=== PATIENT | female | born 1995 | race Two or more races ===

== ENCOUNTER 2023-12-17 13:27 | Emergency (ER) | payer MEDICAID, SELFPAY ==
[2023-12-17 13:31] VITALS: BP 139/73; PULSE 81; TEMP 36.8; O2SAT 97
--- NOTE | 2023-12-17 13:55 | CT_ITS ---
[address] [address] Patient Name: YENI TRUONG MRN: [id number] date: 1995 Sex: F Assigned Patient Location: ER Current Patient Location: .MAIN Accession/Order Number: [id number] Exam Date: 12/17/2023 14:27 Report Date: 12/17/2023 15:47 At the request of: VINCENT NAM Procedure: CT abdomen pelvis wo con EXAM: CT abdomen pelvis wo con HISTORY: epigastric bulge COMPARISON: None. TECHNIQUE: Dose reduction techniques were achieved by using automated exposure control and/or adjustment of mA and/or kV according to patient size and/or use of iterative reconstruction technique. Noncontrast CT of the abdomen/pelvis. FINDINGS: Lung bases are clear. Heart size is normal. Liver, gallbladder, spleen, pancreas, kidneys, stomach, duodenum and adrenal glands are normal. Small hiatal hernia. Fat-containing anterior abdominal wall hernia of the upper abdomen, the anterior abdominal wall defect measures 0.7 cm. The hernia sac measures 2.1 x 1.7 cm. No colonic wall thickening or dilation. No small bowel dilation. No mesenteric edema. Appendix is normal. Large cyst of the posterior aspect of the pelvis measuring 6.3 x 6.1 cm, appears to originate from the right ovary. Ultrasound could evaluate the vascularity of the right ovary more accurately. Uterus is unremarkable by this technique. Nonspecific large left inguinal node measuring 1.1 cm. There are other prominent subcentimeter inguinal nodes. No bladder wall thickening. No acute osseous abnormality. CT/CT abdomen pelvis wo con IMPRESSION: 1. Fat-containing anterior abdominal wall hernia of the upper abdomen, the anterior abdominal wall defect measures 0.7 cm. The hernia sac measures 2.1 x 1.7 cm. 2. Large cyst of the posterior aspect of the pelvis measuring 6.3 x 6.1 cm, appears to originate from the right ovary. Ultrasound could evaluate the vascularity of the right ovary more accurately. 3. Small hiatal hernia. 4. Other findings as described. Electronically authenticated by: ALISON JON Date: 12/17/2023 15:47
[2023-12-17] MEDS: KETOROLAC TROMETHAMINE 30 MG/ML VIAL 15 MG IVP (14:11)
[2023-12-17 14:15] LABS: Basophils Percent Auto 0.6 % (0.2-2.0); Eosinophils Absolute Auto 0.2 10^3/uL (0.0-0.7); Eosinophils Percent Auto 2.5 % (0.9-7.0); Hematocrit 37.7 % (36.0-48.0); Hemoglobin 12.1 g/dL (12.0-16.0); Immature Granulocytes Abs Auto 0.02 10^3/uL (0.00-0.03); Immature Granulocytes Pct Auto 0.3 % (0.0-0.5); Lymphocytes Percent Auto 29.9 % (20.5-60.0); Mean Corpuscular HGB Conc 32.1 g/dL (29.9-35.2); Mean Corpuscular Hemoglobin 27.2 pg (26.7-34.0); Mean Corpuscular Volume 84.7 fL (81.0-99.0); Mean Platelet Volume 11.3 fL (9.5-13.5); Monocytes Absolute Auto 0.7 10^3/uL (0.3-0.8); Monocytes Percent Auto 9.8 % (1.7-12.0); Neutrophils Absolute Auto 3.9 10^3/uL (1.4-6.5); Neutrophils Percent Auto 56.9 % (43.0-75.0); Platelet Count 234 10^3/uL (150-450); Red Blood Count 4.45 10^6/uL (4.20-5.40); Red Cell Distribution Width 13.5 % (11.0-15.0); White Blood Count 6.8 10^3/uL (4.0-11.0)
[2023-12-17 14:17] LABS: HCG Qualitative NEGATIVE (NEGATIVE)
[2023-12-17 14:27] LABS: Alanine Aminotransferase 30 U/L (14-59); Albumin Level 3.5 g/dL (3.4-5.0); Alkaline Phosphatase 68 U/L (46-116); Anion Gap 13.5; Aspartate Amino Transferase 16 U/L (15-37); BUN Creatinine Ratio 13.3; Bilirubin Total 0.2 mg/dL (0.2-1.0); Calcium 8.5 mg/dL (8.5-10.1); Carbon Dioxide 25.6 mmol/L (21.0-32.0); Chloride 106 mmol/L (98-107); Estimated GFR (African America >60 (>=60); Estimated GFR (Non-African Ame >60 (>=60); Globulin 3.6 g/dL; Glucose 93 mg/dL (74-106); Potassium 4.1 mmol/L (3.5-5.1); Sodium 141 mmol/L (136-145); Total Protein 7.1 g/dL (6.4-8.2)
[2023-12-17 16:00] VITALS: BP 128/82; PULSE 72; O2SAT 99
--- NOTE | 2023-12-17 17:36 | ED_ITS ---
HPI - Abdominal Pain General Chief Complaint: Abdominal Pain Stated Complaint: STOMACH PAIN Time Seen by Provider: 12/17/23 13:36 Source: patient Mode of arrival: walk-in Limitations: no limitations History of Present Illness HPI narrative: The patient is coming to the ER with a bulge that she noticed few weeks ago in her epigastric area, she mentioned that she was also coughing because she have a history of smoking and she noted that the bulge was more and it is causing more pain The patient denies any fall or trauma but she mentioned that her work requires a lot of lifting No nausea no vomiting and no changes in bowel movement Related Data Previous Rx's ?Medication ?Instructions ?Recorded diclofenac sodium 75 mg 75 mg PO BID PRN pain #10 tabs 12/17/23 tablet,delayed release Allergies Allergy/AdvReac Type Severity Reaction Status Date / Time No Known Drug Allergies Allergy Verified 12/17/23 13:31 Review of Systems ROS Status of ROS 10 or more systems reviewed and unremark able except as noted in history and below Exam Narrative Exam Narrative: Nurses notes and vital signs reviewed and patient is not hypoxic. General: Well-appearing and in no apparent distress. Skin: Warm, dry, no pallor noted. No rash. Head: Normocephalic, atraumatic. Neck: Supple, non-tender. Eye: Pupils are equal, round and EOMI. No scleral icterus. Ears, Nose, Mouth, and Throat: TM are clear, no nasal mucosal hypertrophy. Oral mucosa is moist, no posterior oropharynx erythema, uvula is mid-line Cardiovascular: Regular Rate and Rhythm without murmur, gallop or rub. Respiratory: No accessory muscle use or respiratory distress. Lungs are clear to auscultation, no wheezing, rales or rhonchi Chest Wall: no tenderness Back: No midline thoracic or lumbar vertebral tenderness. No CVA tenderness Musculoskeletal: normal ROM, no calf or popliteal tenderness, no lower extremity edema/swelling GI: Abdomen is soft, there is no distention the patient have no tenderness in the abdomen except for the area in the epigastric area with the patient have a small bulge at the middle of the abdomen that almost 2 to 3 cm although it is deep in the patient of the muscle but it can be felt and is not movable and is causing some tenderness Neurological: A&O x4. No cranial nerve dysfunction observed. No truncal ataxia. Moves all extremities. Sensation intact. Psychiatric: Cooperative and interactive. Normal mood and affect. Constitutional Vital Signs, click to edit/add: Last Vital Signs Temp 98.2 F 12/17/23 13:31 Pulse 72 12/17/23 16:00 Resp 16 12/17/23 16:00 BP 128/82 12/17/23 16:00 Pulse Ox 99 12/17/23 16:00 Course Vital Signs Vital signs: Vital Signs Temperature 98.2 F 12/17/23 13:31 Pulse Rate 81 12/17/23 13:31 Respiratory Rate 16 12/17/23 13:31 Blood Pressure 139/73 12/17/23 13:31 Pulse Oximetry 97 12/17/23 13:31 Temperature 98.2 F 12/17/23 13:31 Pulse Rate 72 12/17/23 16:00 Respiratory Rate 16 12/17/23 16:00 Blood Pressure 128/82 12/17/23 16:00 Pulse Oximetry 99 12/17/23 16:00 MDM - Abdominal Pain MDM Narrative Medical decision making narrative: Patient CBC and chemistry showed no acute pathology CAT scan showing that the patient abdominal wall hernia that is only containing fat and her pain was better after being treated with Toradol Patient instructed that she need to avoid coughing or straining or carrying anything heavy and she was referred to general surgery as outpatient The patient to come back to the ER in case of any nausea vomiting or any increase in pain It was also noted that the patient have a large cyst in the right ovaries she mentioned that she have a history of similar cyst before but this was a few years ago with right now the patient was instructed about the importance of making sure that she did not have any pain in the right lower abdominal area and in case of any pain she is to come back to the ER because she is at risk of tors ion The patient also instructed that she needs an ultrasound to evaluate for possible tumor as well The patient is to follow up with primary care physician in next 2-3 days or to return to the emergency department should any of the signs or symptoms worsen or new symptoms develop. The patient agrees with the following Diagnosis and Treatment plan and the patient will be discharged home. Lab Data Labs: Lab Results 12/17/23 Range/Units 13:40 WBC 6.8 (4.0-11.0) 10^3/uL RBC 4.45 (4.20-5.40) 10^6/uL Hgb 12.1 (12.0-16.0) g/dL Hct 37.7 (36.0-48.0) % MCV 84.7 (81.0-99.0) fL MCH 27.2 (26.7-34.0) pg MCHC 32.1 (29.9-35.2) g/dL RDW 13.5 (11.0-15.0) % Plt Count 234 (150-450) 10^3/uL MPV 11.3 (9.5-13.5) fL Neut % (Auto) 56.9 (43.0-75.0) % Lymph % (Auto) 29.9 (20.5-60.0) % [place] % (Auto) 9.8 (1.7-12.0) % Eos % (Auto) 2.5 (0.9-7.0) % Baso % (Auto) 0.6 (0.2-2.0) % Neut # (Auto) 3.9 (1.4-6.5) 10^3/uL Lymph # (Auto) 2.0 (1.2-3.8) 10^3/uL [place] # (Auto) 0.7 (0.3-0.8) 10^3/uL Eos # (Auto) 0.2 (0.0-0.7) 10^3/uL Baso # (Auto) 0.0 (0.0-0.1) 10^3/uL Abs Immat Gran (auto) 0.02 (0.00-0.03) 10^3/uL Imm/Tot Granulo (auto) 0.3 (0.0-0.5) % Sodium 141 (136-145) mmol/L Potassium 4.1 (3.5-5.1) mmol/L Chloride 106 (98-107) mmol/L Carbon Dioxide 25.6 (21.0-32.0) mmol/L Anion Gap 13.5 BUN 10.0 (7.0-18.0) mg/dL Creatinine 0.75 (0.55-1.02) mg/dL Est GFR ( Amer) >60 (>=60) Est GFR (Non-Af Amer) >60 (>=60) BUN/Creatinine Ratio 13.3 Glucose 93 (74-106) mg/dL Calcium 8.5 (8.5-10.1) mg/dL Total Bilirubin 0.2 (0.2-1.0) mg/dL AST 16 (15-37) U/L ALT 30 (14-59) U/L Alkaline Phosphatase 68 (46-116) U/L Total Protein 7.1 (6.4-8.2) g/dL Albumin 3.5 (3.4-5.0) g/dL Globulin 3.6 g/dL Albumin/Globulin Ratio 1.0 Serum HCG, Qual Negative (NEGATIVE) Discharge Plan Discharge Stand Alone Forms: Portal Instructions Chief Complaint: Abdominal Pain Clinical Impression: Ovarian cyst, Abdominal wall hernia Patient Disposition: Home, Self-Care Time of Disposition Decision: 15:38 Condition: Good Prescriptions / Home Meds: New diclofenac sodium 75 mg tablet,delayed release (DR/EC) 75 mg PO BID PRN (Reason: pain ) Qty: 10 0RF Print Language: Chinese Instructions: Ovarian Cyst (ED), Ventral Hernia Repair (DC) Referrals: Kevin Levin MD [Physician] - 1 week Physician,Non-Staff, [Primary Care Provider] - 1 week Discharge Date/Time: 12/17/23 16:01
== END 2023-12-17 16:01 | disposition home or self-care (01) ==
PROVIDERS: Emergency Provider Emergency Medicine
DX: N83.201 Unspecified ovarian cyst, right side (principal); K43.9 Ventral hernia without obstruction or gangrene; Z87.891 Personal history of nicotine dependence
CPT/HCPCS: 36415; 74176; 80053; 84703; 85025; 96374; 99285

== ENCOUNTER 2025-05-14 10:57 | Emergency (ER) | payer BC, SELFPAY ==
--- OUTSIDE RECORDS SUMMARY | 2024-12-31 05:00 | XMS_ITS ---
Author Organization 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 Name Role Phone Perla Olsen Primary Care Provider Enrique Joyce [phone] REASON FOR VISIT EST CARE Encounters Encounter Location Date Provider Diagnosis [facility] [address] [place] [address] 12/31/2024 Perla Olsen Plan Of Treatment No Information Progress Notes * TRUONGKOREY JiangI PDOB: [birth year] (30 yo F)Acc No.[id number]:12/31/2024 Progress Notes Patient: YENI GOMEZ :?Perla Olsen NP-CDOB:1995???Age:29 Y ???Sex:FemaleDate:12/31/2024Phone:[phone]:[address] [place] [place], [id number] Subjective: * Chief Complaints: * E ST CARE * Electronic signature of Perla Olsen CNP on 05/14/2025 at 11:25 AM EDTSign off status: Pending * Provider: JOVANY Castellano Date: 0 12/31/2024 Generated for Printing/Faxing/eTransmitting on:?05/14/2025 11:25 AM EDT
--- OUTSIDE RECORDS SUMMARY | 2025-02-13 05:00 | XMS_ITS ---
Author Organization [facility] es Address [address] [place] [address] Care Team Providers Care Main Entree Cook And Cashier Name Role Phone Perla Olsen Primary Care Provider Enrique Joyce [phone] REASON FOR VISIT est care Encounters Encounter Location Date Provider Diagnosis [facility] [address] [place] [address] 02/13/2025 Perla Olsen Plan Of Treatment No Information Progress Notes * TRUONG YENI PDOB: [birth year] (30 yo F)Acc No.[id number]:02/13/2025 Progress Notes Patient: YENI GOMEZ :?Perla Olsen NP-CDOB:1995???Age:30 Y ???Sex:FemaleDate:02/13/2025Phone:[phone]:[address] [place], [id number] Subjective: * Chief Complaints: * E st care * Electronic signature of Perla Olsen CNP on 05/14/2025 at 11:25 AM EDTSign off status: Pending * Provider: JOVANY Castellano Date: 0 02/13/2025 Generated for Printing/Faxing/eTransmitting on:?05/14/2025 11:25 AM EDT
[2025-05-14 11:01] VITALS: BP 113/70; PULSE 83; TEMP 36.5; O2SAT 96; BMI 37.0
--- NOTE | 2025-05-14 11:09 | ECG_ITS ---
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 Measurements Intervals Whittaker Rate: 76 P: 60 CA: 164 QRS: 80 QRSD: 74 T: 30 QT: 356 QTc: 386 Interpretive Statements 1100 Sinus rhythm 9110 normal ECG No previous ECG available for comparison Electronically Signed On 05-14-2025 23:43:49 EDT by KEENAN BAUTISTA M.D.
--- NOTE | 2025-05-14 11:09 | XR_ITS ---
[facility] [place] [id number] Patient Name: YENI TRUONG MRN: [id number] date: 1995 Sex: F Assigned Patient Location: ED.MAIN Current Patient Location: ED.MAIN Accession/Order Number: [id number] Exam Date: 05/14/2025 11:10 Report Date: 05/14/2025 12:01 At the request of: MELY CABAN MD Procedure: XR chest 1V PORTABLE AP ERECT CHEST 1059 hours CLINICAL HISTORY: Wheezing COMPARISON: None The heart is within normal limits. There is no vascular congestion. The lungs, as visualized, are clear. There is no effusion or pneumothorax. The osseous structures are intact. XR/XR chest 1V IMPRESSION: NO ACUTE FINDINGS Impression dictated by: Alka Browne M.D. 05/14/2025 12:01 PM Dictation Location: [place] [address] Electronically authenticated by: [id number] Y Date: 05/14/2025 12:01
--- NOTE | 2025-05-14 11:09 | ED.GENADUL1 ---
HPI HPI - General Adult General Chief complaint: Shortness of Breath/Dyspnea Stated complaint: CHEST PAIN, SOB Time Seen by Provider: 05/14/25 11:06 Source: patient Mode of arrival: walk-in Limitations: no limitations History of Present Illness HPI narrative: 30-year-old female presents for wheezing and pain in her chest and shortness of breath. She believes her allergies are acting up. She has a wheezing sensation and she has never had that before. She has never used an inhaler. She has not had a productive cough or a fever. Symptoms began within the last day or 2. Related Data Previous Rx's ?Medication ?Instructions ?Recorded diclofenac sodium 75 mg 75 mg PO BID PRN pain #10 tabs 12/17/23 tablet,delayed release albuterol sulfate 90 mcg/actuation 2 inh inhalation Q4H PRN shortness 05/14/25 aerosol inhaler of breath or wheezing #8.5 grams prednisone 10 mg tablet See Rx Instructions .Route 05/14/25 .COMPLEX #30 tabs Allergies Allergy/AdvReac Type Severity Reaction Status Date / Time No Known Drug Allergies Allergy Verified 12/17/23 13:31 Opioid HPI Opioid Management Most Recent Opioid Data: Last Pain Scale 4 12/17/23, 14:11 Review of Systems ROS Narrative A ten point review of systems is negative except as noted above. PFSH PFSH Social History Little interest or pleasure in doing things: not at all Feeling down, depressed, or hopeless: not at all Exam Narrative Exam Narrative: Nurses note and vital signs reviewed General:The patient appears well and in no apparent distress.Patient is resting comfortably on cart. Skin:Warm, dry, no pallor noted.There is no rash noted. Head:Normocephalic, atraumatic Eye: Normal conjunctiva, no drainage Ears, Nose, Mouth, and Throat: oral mucosa is moist. Nares patent. Cardiovascular:Regular Rate and Rhythm Respiratory: Bilateral rhonchi throughout. Breath sounds equal Back:non-tender GI: Soft and nontender Musculoskeletal: The patient has no evidence of calf tenderness, no pitting edema, symmetrical pulses noted bilaterally Neurological:A&O, normal speech Psychiatric:Cooperative Constitutional Vital Signs, click to edit/add: Last Vital Signs Temp 97.7 F 05/14/25 11:01 Pulse 74 05/14/25 11:28 Resp 22 H 05/14/25 11:01 BP 113/70 05/14/25 11:01 Pulse Ox 97 05/14/25 11:28 O2 Del Method Room Air 05/14/25 11:28 Course Vital Signs Vital signs: Vital Signs Temperature 97.7 F 05/14/25 11:01 Pulse Rate 83 05/14/25 11:01 Respiratory Rate 22 H 05/14/25 11:01 Blood Pressure 113/70 05/14/25 11:01 Pulse Oximetry 96 05/14/25 11:01 Oxygen Delivery Method Room Air 05/14/25 11:01 Temperature 97.7 F 05/14/25 11:01 Pulse Rate 74 05/14/25 11:28 Respiratory Rate 22 H 05/14/25 11:01 Blood Pressure 113/70 05/14/25 11:01 Pulse Oximetry 97 05/14/25 11:28 Oxygen Delivery Method Room Air 05/14/25 11:28 Medical Decision Making MDM Narrative Medical decision making narrative: The patient feels much better after her aerosol treatment. She has very minimal wheezing now on repeat examination with excellent air movement. She is prescribed prednisone and albuterol. Treatment diagnosis and follow-up were discussed with the patient. Differential Diagnosis Differential Diagnosis: Asthma, pneumonia, reactive airway disease Imaging Data Chest x-ray: My impression: No acute findings ECG Data Attestation: I personally reviewed and interpreted this ECG as follows: (EKG on my interpretation shows sinus rhythm with rate of 76 and no acute change) Discharge Plan Discharge Chief Complaint: Shortness of Breath/Dyspnea Clinical Impression: Asthma exacerbation Patient Disposition: Home, Self-Care Time of Disposition Decision: 11:57 Condition: Good Mode of Transportation: Private Vehicle Prescriptions / Home Meds: New prednisone 10 mg tablet See Rx Instructions .ROUTE .COMPLEX Qty: 30 0RF Rx Instructions: 4 by mouth daily for three days then 3 by mouth daily for three days then 2 by mouth daily for three days then 1 by mouth daily for three days albuterol sulfate 90 mcg/actuation HFA aerosol inhaler 2 inh inhalation Q4H PRN (Reason: shortness of breath or wheezing) Qty: 8.5 0RF No Action diclofenac sodium 75 mg tablet,delayed release (DR/EC) 75 mg PO BID PRN (Reason: pain ) Qty: 10 0RF Print Language: Gambian Instructions: Asthma (ED), How to Use a Metered-Dose Inhaler (ED) Referrals: Physician,Non-Staff, MD [Primary Care Provider] - 1 week
--- OUTSIDE RECORDS SUMMARY | 2025-05-14 11:24 | XMS_ITS | CCD ---
Author Organization [facility] Care Team Providers Care Veterinary Meat Inspector Name Role Phone No, Physician Primary Care Provider Unavailabl e NO, PHYSICIAN Primary Care Unavailable LAURYN PONCE Attending Unavailabl e NONE, XXXX Primary Care Physician Unavailab Asha Wilson Primary Care Physician Harvey WYATT Primary Care Physician ROSE DRUMMOND Attending Unavailable Oswaldo Nj Referring Unavailable Oswaldo Nj Attending Unavailable Oswaldo Nj Admitting Unavailable No Pcp, No Pcp Primary Care Provider Unavailabl e Medications Current Medications MedicationDrug Class(es)DatesSig (Normalized)Sig (Original)cyclobenzaprine hydrochloride 10 mg oral tablet (1 source)Muscle RelaxantStart: 68-41-3920oqbd 1 tablet by mouth three times daily as needed for muscle spasmscyclobenzaprine (FLEXERIL) 10 mg tablet Take 1 tablet (10 mg total) by mouth 3 (three) times a day as needed for muscle spasms. 30 tablet 02/28/2022 Activeibuprofen 800 mg oral tablet (1 source)Nonsteroidal Anti-inflammatory DrugStart: 58-50-5239pghi 1 tablet by mouth every eight hours as needed for painibuprofen (MOTRIN) 800 mg tablet Take 1 tablet (800 mg total) by mouth every 8 (eight) hours as needed for pain. 30 tablet 02/28/2022 ActivemetroNIDAZOLE 500 mg oral tablet (1 source)Nitroimidazole AntimicrobialStart: 02-04-2019 End: 52-38-6755weah 1 tablet by mouth twice daily at mealtimemetroNIDAZOLE (FLAGYL) 500 MG tablet Take 1 (one) tablet (500 mg total) by mouth 2 (two) times a day with meals for 7 days . 14 tablet 0 02/04/2019 02/11/2019 Active Completed/Discontinued Medications MedicationDrug Class(es)DatesSig (Normalized)Sig (Original)acetaminophen 325 mg oral tablet (1 source)Start: 02-04-2019 End: 89-72-8293fpzthlojfafmn (TYLENOL) tablet 975 mg Problems Problem ClassificationProblemDateDocumented DateEpisodic/ChronicFever of unknown origin (1 source)Fever; Translations: [Fever, unspecified fever cause]Episodic Inflammatory diseases of female pelvic organs (1 source)Bacterial vaginosis; Translations: [Bacterial vaginosis]EpisodicMood disorders (1 source)Depressive disorder; Translations: [Depressive disorder]Onset: [id number] disorders of stomach and duodenum (5 sources)Stomach ciqltgj19-42-2656HalbwxyeQhxch upper respiratory infections (1 source)Acute pharyngitis; Translations: [Acute pharyngitis, unspecified] Onset: 58-18-5288FfmechxmHsyqxro and strains (1 source)Sprain of right ankle; Translations: [Sprain of unspecified ligament of right ankle, initial encounter]Onset: 42-71-1086UilpnpikLmqzuzxvs-related disorders (5 sources)Pefnuo81-52-0821AhewhslLleswpn on above:Added secondary to documentation in Social History.Added secondary to documentation in Social History. Results Test NameValueInterpretationReference RangeFacilityUS Pelvis Non-OB Completeon [id number] Pelvis Non-OB CompleteExam Date/Time: 03/12/2024 08:45 EDT Reason for Exam: N83.291 Report IMPRESSION: DUPLEX COLOR ULTRASOUND OF BOTH LEFT AND RIGHT OVARIES. SMALL AMOUNT OF FREE FLUID IN THE PELVIS. CLINICAL HISTORY: N83.291. COMPARISON: March 22, 2022 COMMENT: Transabdominal and endovaginal examination the pelvis The uterus measurements and an estimated volume are: Uterus Length: 7.4 cm Uterus Width: 4.2 cm Uterus Height: 3.1 cm Uterus Volume: 50.0 cm3 Endometrium Thickness: 0.8 cm no fluid is noted within the uterine canal. The endometrial echo complex is unremarkable. No abnormality of the echo pattern of the uterus is noted. No uterine mass is evident. The right ovary measurements and an estimated volume are: Right Ovary Length: 3.0 cm Right Ovary Width: 2.6 cm Right Ovary Height: 2.1 cm Right Ovary Volume: 8.2 cm3 Symptoms: Ultrasound of the right ovary is noted. Multiple cysts most likely physiological or functional are noted. The left ovary measurements and an estimated volume are: Left Ovary Length: 4.5 cm Left Ovary Width: 3.0 cm Left Ovary Height: 1.8 cm Left Ovary Volume: 12.2 cm3 The proximal color ultrasound of the left ovary is noted. Multiple cysts most likely physiological functional noted. There is a small amount of free fluid in the pelvis. Report Ordering Provider: Oswaldo Nj FINAL REPORT Dictated: 03/15/2024 10:54 am Fabian Good Signed (Electronic Signature): 03/15/2024 10:54 am Signed by: Fabian Good Transcribed by: STEFANY Technologist: [facility] Transvaginal Non-OBon [id number] Transvaginal Non-OBExam Date/Time: 03/12/2024 08:45 EDT Reason for Exam: N83.291 Report IMPRESSION: See transabdominal report EXAMINATION: Transabdominal endovaginal examination the pelvis CLINICAL HISTORY: Follow-up cystic mass seen on prior exam COMPARISONS: None FINDINGS: See the transabdominal report for additional details Ordering Provider: Oswaldo Nj FINAL REPORT Dictated: 03/15/2024 10:56 am Fabian Good Signed (Electronic Signature): 03/15/2024 10:56 am Signed by: Fabian Good Transcribed by: STEFANY Technologist: [facility] DublinPhysician Orderon [id number] Order [id number]#1.00TIFFKettering Health Washington TownshipMICRO OTHER TESTSOrdered By: Herman Mark on 02-09-2022. pyogenes Ag IA.rapid Ql (Throat)Negative (02/09/22 8:48 PM)NormalNegativeALLIANCEHE[facility] [place] SeroED Pat Hetal [id number] Pat [address] [address] Emergency Department Discharge Instructions SHERRIE TRUONG , Please provide this information to your Primary Care/Specialist Name : SHERRIE TRUONG Current Date : 03/06/2019 13:08:43 : 1995 Primary Care Physician : Physician, Shonda PCP Diagnosis: Follow-Up Instructions: SHERRIE TRUONG has been given these follow-up instructions: FOLLOW-UP APPOINTMENTS: Provider: Specialty: Address: Date: Provider: Specialty: Address: Date: Follow up with primary care provider Follow-up as needed Laboratory Orders: Name: Status: Urinalysis with Microscopic Automatic Completed Test Urine Completed Urinalysis Microscopic Completed Radiology Orders: None Ordered Diagnostic Tests: None Ordered Procedure(s) and Patient Education(s) : Free Text Instruction (CUSTOM) EMERGENCY SERVICES MEDICATION LIST Lista de Medicaciones de los Servicios de Emergencia Name SHERRIE TRUONG PLEASE READ THE FOLLOWING REGARDING YOUR MEDICATIONS Based on the information available during your visit we have given you the medication instructions below. Continue taking medications you took prior to your visit unless you have been told to change.Please share this information with your own doctor. Carry a list of your medications with you in case of an emergency. Update it when medications are stopped, doses are changed, or new medications (including mpys-hfj-tjosppr products) are added. If you have any questions, check with your doctor. Por la informaci??n disponible katie bailon visita, las instrucciones de medicaci??n aparecen debajo.Favor de continuar tomando las medicaciones Ud. peggy?? antes de bailon visita por lo menos que hay cambios. Favor de compartir esta informaci??n con bailon medico. Lleva rajendra lista de medicaciones consigo por tavo de emergenc??a. Actualiza la lista cuando Ud. jeri de alie las medicaciones, si cambian las dosis, o si hay nuevas medicaciones a??adidas (incluyendo medicaciones vendidas sin prescripci??n). Favor de preguntar a bailon medico por cualquier devin. THESE ARE THE MEDICATIONS YOU SHOULD BE TAKING No Medications Documented MEDICATIONS GIVEN DURING MEDICAL VISIT None NON-MEDICATION PRESCRIPTION SCHEDULING PHONE NUMBER: MEDICATION CHANGE DETAILS (Not your Final Home Medication List) During the course of your visit, your home medication list was updated with the most current information. The details of those changes are shown below: NEW MEDICATIONS None UPDATED MEDICATIONS None UNCHANGED MEDICATIONS None STOP TAKING THESE MEDICATIONS None DO NOT TAKE UNTIL YOU TALK TO YOUR DOCTOR None [facility] [address], [place] [address] Emergency Department Discharge Instructions Name: SHERRIE TRUONG Current Date: 03/06/2019 13:08:43 : 1995 Primary Physician: Physician, No PCP We would like to thank you for choosing [facility] for your emergency medical needs. We examined and treated you today on an emergency basis only. This was not a substitute for, or aneffort to provide, complete medical care. In most cases, you must let your doctor (or the doctor wereferred you to) check you again. Tell your doctor about any new or lasting problems. We cannot recognize and treat all injuries or illnesses in one emergency department visit. After you leave, you should follow the directions attached. Instructions for obtaining X-rays: When following up with your doctor or a bone doctor, you may need to take copies of your x-rays that were done in the Emergency Department. If you didn't receive these upon your discharge from the emergency department, please call . When the final report becomes available and it is reviewed, the emergency department will attempt to contact you if there are any changes in your instruc tions. It is important that you leave accurate information with us on how to contact you. IF you cannot be contacted, YOU must contact the follow-up doctor that you were assigned to make sure that the final official x-ray report does not require a change in your treatment. Instructions for obtaining medical records: If you need a copy of your medical records for follow-up, please contact the Health Information Management Department at . Their office hours are 8 AM- 4:30 PM, Monday through Monday. Please note: Results are not immediately available. Please allow a minimum of 48 hours for documentation and results. If you were prescribed an antibiotic: Antibiotics are life-saving drugs and they need to be used properly. Your team might change your antibiotic because test results show that a different antibiotic would be better to treat your infection. Like all medications, antibiotics have side effects. Some can be serious. This includes the riskof getting an antibiotic-resistant infection later, which may be difficult to treat. Remember to take your antibiotics as prescribed. If you have any questions please talk to your healthcare team. Seatbelts: There is no doubt that seatbelts save lives. Every day, people without seatbelts have more serious injuries. Have everyone buckle up, using age appropriate seatbelts or car seats, to reduce their risk of injury. Smoking: If you do smoke, we encourage you to stop. Smoking affects all aspects of your health and the health of those around you. [facility] offers many resources to help with smoking cessation. Call the [place] Tobacco Quit Line at 0-267-YHRWNOW ( ). High blood pressure: Your screening blood pressure today was 107 mm Hg / 74 mm Hg. Hypertension (high blood pressure) isblood pressure over 120/80. People with hypertension should contact their primary care provider within 30 days to follow up. Check your patient portal for additional blood pressure information. Immunizations: Immunization is a way to protect against deadly infections. Discuss this with your child's comfort station supervisor, or Public Health Department. Your family practice doctor can determine if you need pneumonia or flu vaccine. The [facility] Department can be reached at . Substance Abuse Program: Concerns with addiction to alcohol, benzodiazepines (Ativan or Xanax) and Opiates (Heroin, Percocet, OxyContin, Methadone or Fentanyl)? [facility] offers an inpatient Substance Abuse Program to help treat the symptoms associated with medical detoxification of addictive substances. The new program offers care for non- adults (18 and older) looking to break the chain to addictive chemicals. The Substance Abuse Program is a voluntary inpatient admission and it starts with apre-screening phone call to a sexual assault social worker. During the call, goals and objectives for recovery andhow the patient will transition to outpatient care will be established. Please call [phone] toget help today. Domestic Violence: If you are a victim of domestic violence (physical, verbal, or emotional), you are not alone. Discuss this with your physician or a friend and call the [place] Domestic Violence Hotline or [place] Domestic Violence Hotline for assistance and support. You are the most important factor in your recovery. Follow the provided instructions carefully. Take your medications as prescribed. Most importantly, see a doctor again as discussed. If you have problems that we have not discussed, call or visit yourdoctor right away. If you do not have a primary care physician, we have provided one for you to follow up with. When you call for an appointment, please inform them that you were seen in the emergency department and the date of your visit. If you are unable to reach your doctor and are still experiencing problems, return to the emergency department. For assistance finding a primary care physician, call the Physician Referral Line at [phone] ([phone]). Suicide Hotline: Your mental and emotional well-being is important. If you are in a mental health crisis or are having thoughts of suicide, please call the [facility] suicide hotline, anytime day or night, at 0-274-552-ZBRY (4288). Community Cutter And Edge Trimmer: You may be contacted by your local fire department for a follow up visit from a community painter decorator. The community painter decorator can help with a home safety check; follow up care, and general home care management. Pharmacy Information: Below is a list of 24 hour pharmacies that we are aware of. We suggest that you call the specific pharmacy for their hours before traveling to a location. Hours may vary on holidays. [facility] [place] [address], [place] [phone] [address] [place], [place] [address] [phone] [address] [place], [place] [address] [phone] [address], [place] [phone] [address], [place] [phone] [address], [place] [phone] [place] [phone] Take all medications as directed. If you need prescription assistance, contact the following agencies: ?? Partnership for Prescription Assistance at or www.pparx.org ?? [place] at or www.[place]estrx.org ?? www.XpliantRx.LeCab is a site with many valuable coupons Patient Education Materials SHERRIE TRUONG has been given the following patient education materials: Your urinalysis today is negative for , infection or dehydration. I feel that your symptoms are likely related to the antibiotic that you are taking. Please completed as directed by your physician. Return to the emergency room with persistent vomiting or fevers. <><><><><><><><><><><><><><><><><><><><><><><><><><> Patient Visit Summary Signature SHERRIE TRUONG has been given the following list of patient education materials, prescriptions and follow-up instructions: I, SHERRIE TRUONG, have received the above patient education materials/instructions and have verbalized understanding: Date Time Patient Signature Date Time Provider SignatureNormalSum[facility] Health [facility] CampusPregnancy Test Urineon 26-53-4418KIL ( test) Ql (U)NegativeNormalSumma Health [facility] Campus Comment on above:Performed By: #### 33771-9, 2106-3, 81965-9 #### [facility], [address], OHUrinalysis Microscopicon 07-87-8299Jzofmnhnms cells.squamous LM.HPF (Urine sed) [#/Area]RARENormalFEW/LPF [facility] SystemComment on above:Performed By: #### 21909-7, 2105-09, #### [facility], [address] [place] [address],OHMucus Ql (Urine sed)RARE AbnormalNONE/LPFMount Crittenton Behavioral Health SystemComment on above:Performed By: #### 41409-3, 2105-09, 93648-7 #### [facility], [address] [place] [address],OHRBC LM.HPF (Urine sed) [#/Area]1 /[HPF]Normal0-5[address] HospitalComment on above:Performed By: #### 34865-1, 2105-09, 16004-9 #### [facility], [address] [place] [address],OHWBC LM.HPF (Urine sed) [#/Area]1 /[HPF]Normal0-5[address] HospitalComment on above:Performed By: #### 08432-4, 2105-09, #### [facility], [address] [place] [address],OHUrinalysis with Microscopic Automaticon 93-18-6322Eourowmrji (U)CLEARNormalCLEARSumma Health [facility] Campus Comment on above:Performed By: #### 28934-2, 2105-09, #### [facility], [address] [place] [address],OHBilirubin Test strip (U) [Mass/Vol]NegativeNormalNEGATIVE-NEGATIVESumma Health [facility]ron CampusComment on above:Performed By: #### 55196-7, 2105-09, 71966-9 #### [facility], [address] [place] [address],OHColor (U)YELLOWNormalYELLOW [facility] CampusComment on above:Performed By: #### 78014-9, 2105-09, 25111-4 #### [facility], [address] [place] [address],OHGlucose Test strip (U) [Mass/Vol]NORMALNormalNORMALMount Crittenton Behavioral Health SystemComment on above:Performed By: #### 01592-2, 2105-09, #### [facility], [address] [place] [address],NVHemoglobin Ql (U)10/ULAbnormal NEGATIVE-NEGATIVELaunt Crittenton Behavioral Health SystemComment on above:Performed By: #### 32785-5, 2105-09, #### [facility], [address] [place] [address],NVKetones (U) [Mass/Vol]5MG/DL AbnormalNEGATIVE-NEGATIVELaunt Crittenton Behavioral Health SystemComment on above:Performed By: #### 03300-4, 2105-09, #### [facility], [address] [place] [address],NVLeukocyte esterase Test strip Ql (U)NegativeNormalNEGATIVE-NEGATIVEMount Crittenton Behavioral Health SystemComment on above: Performed By: #### 09593-4, 2105-09, #### [facility], [address] [place] [address],NVNitrite Test strip (U) [Mass/Vol]NegativeNormalNEGATIVE-NEGATIVELaunt Crittenton Behavioral Health SystemComment on above:Performed By: #### 12450-5, 2105-09, #### [facility], [address] [place] [address],OHpH (U)6.0 [pH]Normal4.5-8.0 [facility] SystemComment on above:Performed By: #### 01713-5, 2105-09, #### [facility]SH[facility]ABMAR[facility], [address] [place] [address],OHProtein (U) [Mass/Vol]Negative NormalNEGATIVE-NEGATIVEChillicothe Va Medical Center SystemComment on above:Performed By: #### 16940-3, 2105-09, 61196-2 #### [facility], [address] [place] [address],OHSpecific gravity (U) [Rel density]1.271Cyeyzm4.002-[address] HospitalComment on above: Performed By: #### 78515-6, 2105-3, 44265-7 #### [facility], [address] [facility],NVUrobilinogen Test strip (U) [Mass/Vol]NORMALNormalNORMALMount Wilson Street HospitalComment on above:Performed By: #### 11450-0, 2105-3, 23853-3 #### [facility], [address] [facility],NVPOC , Urineon 30-25-4095Ozab HCG ( test) Ql (U)Dilute urine specimens, as indicated by a low specific gravity (<1.010) may not contain insurance sales representative levels of hCG. If is still suspected, a serum test or repeat urine pregnan cy test using a first morning urine specimen should be considered.OhioHealthHCG ( test) Ql (U)NegativeNegativeOhioHealthInterpretation and review of laboratory resultsKettering Health Greene Memorial Urinalysis Dipstick, Autoon 02-04-2019 Bilirubin Ql (U)NegativeNegativeOhioHealthGlucose Ql (U)NegativeNegative mg/dL [facility]Bluffton HospitalHemoglobin Ql (U)NegativeNegativeOhioHealthInterpretation and review of laboratory resultsAbnormalOhioHealthKetones Ql (U)TraceAbnormalNegative mg/dL [facility]Bluffton HospitalLeukocyte esterase Test strip Ql (U)NegativeNegativeOhioHealthNitrite Ql (U)NegativeNegativeOhioHealthpH (U)5.5 [pH]OhioHealthProtein Ql (U)Negative Negative mg/dLOhioHealthSpecific gravity (U) [Rel density]1.025[facility] Urobilinogen Qn (U)0.2 mg/dL<2.0[facility] Vital Signs Date TimeVital SignValuePerforming DwurzehfiFdpndijg69-21-7905 15:53-0400Body iqkxtufaanh87.42 [degF][facility]08-17-2022 15:53-0400Diastolic blood mm[Hg][facility]08-17-2022 15:53-0400Heart rate96 /minFirelands Regional Medical Center South Campus08-17-2022 15:53-0400Respiratory rate16 /minFirelands Regional Medical Center South Campus08-17-2022 15:53-5093FoA1% (BldA) [Mass fraction]100 %[facility]08-17-2022 15:53-0400Systolic blood pressure 119 mm[Hg][facility]07-20-2022 20:40-0400Body rbbatlrjmiy91.24 [degF]Toddylinn Dokken [address] [place], [place] [address]7-20-2022 20:40-0400 Diastolic blood mm[Hg]Kaylinn Dokken [address] [place], [place] [address]7-20-2022 20:40-0400Heart rate75 /minToddylinn Dokken [address] [place], [place] 486[address]7-20-2022 20:40-0400 Respiratory rate16 /minToddylinn Dokken [address] [place], [place] 486[address]7-20-2022 20:40-2576LpE1% (BldA) [Mass fraction]98 %Toddylinn Dokken [address] [place], [place] [address]7-20-2022 20:40-0400 Systolic blood mm[Hg]Toddylinn Dokken [address] [place], [place] [address]7-15-2019 20:25-0400Body Iimcnrpnslj49.2 [degF]Lauryn ReyesXdsedyiJykwGicylu96-23-2168 19:12-0400BMI (Body Mass Index)30.27 kg/v0Xbvibsanna SinclairXqkthjdRdsfQncjxx38-24-7040 19:12-0400Body weight 70.31 kganna QcijserLamjKxqbst11-48-7262 19:120400BP Jsvnybepa37 mm[Hg]Lauryn PonceOodylcvOzkyEaigqo94-93-6913 19:12-0400BP Mlfogdtl824 mm[Hg]Lauryn Ponce GcswWotcrz45-75-9815 19:129478Hnppfy840.4 cmTenzo PonceWwofqnkBuerOpwogx23-01-7736 19:120400Pulse (Heart Rate)90 /minLauryn WillNlonrddLbfgNxjwhd73-08-4166 19:12-0400 Pulse Kplqcyef01 %Lauryn PonceJwivkdsPaoeSfzesx07-15-9733 19:12-0400Respiratory Rate 15 /minLauryn ReyesProMedica Defiance Regional Hospital Encounters Encounter DateEncounter TypeCare ProviderFacilityStart: 03-18-2024 End: 74-52-4987Sfkigkytj encounterMenjitendra Silva MD Work Phone: [facility] SurgeryStart: 03-12-2024 End: 39-80-8194qhgkqlmgchVkybc D KastenFacility:FTMCStart: 03-12-2024 End: 06-56-0687Bjdcseu encounter procedureOswaldo Nj [facility] Start: 08-11-2023 End: 91-98-0960ldiumzwknyKMJZFX M WORKMANNot AvailableStart: 03-09-2022 End: 71-00-2754Nskdylxrv department patient visitAstrit H DanielMagruder Hospital Start: 02-09-2022 End: 58-62-9235Dbpwqrxcb department patient visitToddylmirella Hwang [facility] Start: 01-28-2022 End: 67-39-3049Gyr-admission assessmentJamilan Nj [facility] Start: 01-20-2022 End: 45-25-2392Dwoljxh encounter procedureTermarie Isaac [facility] Start: 02-04-2019 End: 08-03-7627Pcjbgyqyy department patient visitPHYSICIESMER Northside Hospital Cherokeetart: 02-04-2019 End: 66-65-1855Qczopbnfj department patient visitTaanna Ponce Work Phone: OhFirstHealth Emergency DepartmentComment on above:Bacterial vaginosis (Primary Dx); Fever, unspecified fever cause Procedures DateProcedureProcedure DetailPerforming ClinicianStart: 06-05-5577Htnpc dip stick/tablet rgnt auto w/o microscopyTaanna Ponce Work Phone: Start: 33-23-5478Edkjiqxwqlhepevvjo ( test) [Presence] in UrineTaanna Ponce Work Phone: Plan of Treatment DateCare ActivityDetailAuthorStart: 26-05-7527UNbD,Tdap and Td Vaccines (3 - Td or Tdap)DTaP,Tdap and Td Vaccines (3 - Td or Tdap)[facility] SystemStart: 09-81-3515Fpcwfsvah vaccinationInfluenza VaccineOhioHealth [facility]heastern Medical Center SystemStart: 25-86-8328Iwnxc BMI ScreeningAdult BMI ScreeningOhioHealth Southeastern Medical Center SystemStart: 02-18-2019 End: 27-46-4610Nssjtt Visit02/18/2019 Office Visit Obstetrics and Gynecology Arlet Pike MD [address] [facility] [place] [address] [phone] [facility] [facility] Office Start: 05-19-9543Hsjmhaezy for malignant neoplasm of cervixPap SmearProOhio Valley Hospital SystemStart: 54-07-5592Gsbsgnpyev ScreeningDepression ScreeningOhioHealth Southeastern Medical Center SystemStart: 65-42-2185Jcsllba ScreeningTobacco ScreeningOhioHealth Southeastern Medical Center System End: 93-23-1377Tfdyqfmuw trachomatis rRNA assayChlamydia/GC/Trichomonas Amplified RNA Microbiology Routine Once for 1 Occurrences starting 02/04/2019 until 02/04/2019OhioHealthComment on above:Once for 1 Occurrences starting 02/04/2019 until 02/04/2019Chlamydia trachomatis rRNA assay Chlamydia/GC/Trichomonas Amplified RNA Microbiology Routine 02/04/2019 7:41 PM EDTOhiNDealth End: 26-36-2842Rqnhaewzm gonorrhoeae nucleic acid detectionChlamydia/Gonorrhoeae Amplified RNA Microbiology Routine Once for 1 Occurrences starting 02/04/2019 until 02/04/2019OhioHealthComment on above:Once for 1 Occurrences starting 02/04/2019 until 02/04/2019Neisseria gonorrhoeae nucleic acid detection Chlamydia/Gonorrhoeae Amplified RNA Microbiology Routine 02/04/2019 7:41 PM EDT [facility] End: 26-67-5029Sgcykhbktij vaginalis Amplified RNATrichomonas vaginalis Amplified RNA Microbiology Routine Once for 1 Occurrences starting 02/04/2019 until 02/04/2019OhioHealthComment on above:Once for 1 Occurrences starting 02/04/2019 until 02/04/2019Trichomonas vaginalis Amplified RNATrichomonas vaginalis Amplified RNA Microbiology Routine 02/04/2019 7:41 PM EDTOhiNDeal Immunizations Immunization DateImmunizationNotesCare WpnkkqpmBjnbarej88-19-1891wlidice toxoid, reduced diphtheria toxoid, and acellular pertussis vaccine, adsorbedJames Silva MD Work Phone: [facility] Payers DatePayer CategoryPayerPolicy [id number] 2023Medicaid CARESOURCE MEDICAID [facility] [id number] 2022-Present [phone] [address] [place] [address] [id number] INSURANCE AUTO [id number] ONLY LIABILIT [id number] 2022-Present [phone] [facility] [address] [place] [address] [id number]'s CompensationWORKER'S COMPENSATION WORKER'S [id number] ONLY [id number] 2022-Present [id number] [facility] [address] [place] [address] [id number] Health InsuranceAETNA AETNA CHOICE POS/POSII/PREMIER CARE/PREMIER CARE PLUS xxxxxxxxxx 2016-Presentxxxxxxxxxx [id number]. Private Health [id number] Social History DateTypeDetailFacilityStart: 02-04-2019 End: 86-67-4049Xewegoh smoking status NHISCurrent every day smokerOhioHealth Comment on above:2 per dayHistory of tobacco useCigar SmokerOhioHealthStart: 36-99-0990Dxszhth SDOH Alcohol Oscibjljc1IhygQipkgpLikbz: 14-50-3402Quo Assigned At BirthNot on fileOhioHealthStart: 09-03-2020 End: 96-17-3117Ens Assigned At BirthFemaleFPeoples Hospital CenterStart: 04-59-7853Xo-smoker (finding)[facility] CenterStart: 05-13-2018 Tobacco smoking status NHISOccasional tobacco smokerProOhio Valley Hospital System History of tobacco useCigarette SmokerOhioHealth Southeastern Medical Center SystemStart: 05-13-2018 Tobacco use and exposureSmokeless tobacco non-userProOhio Valley Hospital SystemStart: 03-04-2999Ipsndxcik beverage intakeCurrent non-drinker of alcohol (finding) [facility] Hospitaltart: 09-03-2020 End: 42-10-1896Rcnnxsu of Social functionMetroHealth Main Campus Medical CenterChildcareUnknown [facility] Functional Status QkdeHwtxbvehbsInhkxiEkbgnjyx95-38-2932G/[facility]07-20-2022 Functional StatusN/[facility] Note 03-18-2024 Note Date & PziwNmleNzpdzdsf42-41-1710 Miscellaneous Notes* Telephone Encounter - Lashon Jacobo - 03/18/2024 11:33 AM EDT Called Sherrie as she no called no showed for her appointment with Dr Silva for today, I left a message on voicemail to call the office back to reschedule her appointment. documented in this encounterMetroHealth Main Campus Medical Center Telephone encounter Note 03-18-2024 Note Date & UlvwScjmHwycuilm50-12-6252 Telephone encounter Note* Telephone Encounter - Lashon Jacobo - 03/18/2024 11:33 AM EDT Called Sherrie as she no called no showed for her appointment with Dr Ricardo burdick today, I left a message on voicemail to call the office back to reschedule her appointment. [facility] Hospital Discharge instructions 03-09-2022 Note Date & HuxyZzwgKgfjkgfu07-11-0298 Hospital Discharge instructions Patient Education 03/09/2022 16:06:03 Ankle Sprain, Yssv-qt-Xtwk Ankle Sprain An ankle sprain is a stretch or tear in one of the tough tissues (ligaments) that connect the bonesin your ankle. An ankle sprain can happen when the ankle rolls outward (inversion sprain) or inward(eversion sprain). What are the causes? This condition is caused by rolling or twisting the ankle. What increases the risk? You are more likely to develop this condition if you play sports. What are the signs or symptoms? Symptoms of this condition include: Pain in your ankle. Swelling. Bruising. This may happen right after you sprain your ankle or 1 2 days later. Trouble standing or walking. How is this diagnosed? This condition is diagnosed with: A physical exam. During the exam, your doctor will press on certain parts of your foot and ankle and try to move them in certain ways. X-ray imaging. These may be taken to see how bad the sprain is and to check for broken bones. How is this treated? This condition may be treated with: A brace or splint. This is used to keep the ankle from moving until it heals. An elastic bandage. This is used to support the ankle. Crutches. Pain medicine. Surgery. This may be needed if the sprain is very bad. Physical therapy. This may help to improve movement in the ankle. Follow these instructions at home: If you have a brace or a splint: Wear the brace or splint as told by your doctor. Remove it only as told by your doctor. Loosen the brace or splint if your toes: ?Tingle. ?Lose feeling (become numb). ?Turn cold and blue. Keep the brace or splint clean. If the brace or splint is not waterproof: ?Do not let it get wet. ?Cover it with a watertight covering when you take a bath or a shower. If you have an elastic bandage (dressing): Remove it to shower or bathe. Try not to move your ankle much, but wiggle your toes from time to time. This helps to prevent swelling. Adjust the dressing if it feels too tight. Loosen the dressing if your foot: ?Loses feeling. ?Tingles. ?Becomes cold and blue. Managing pain, stiffness, and swelling Take ldoi-gmv-nnlrfjc and prescription medicines only as told by doctor. For 2 3 days, keep your ankle raised (elevated) above the level of your heart. If told, put ice on the injured area: ?If you have a removable brace or splint, remove it as told by your doctor. ?Put ice in a plastic bag. ?Place a towel between your skin and the bag. ?Leave the ice on for 20 minutes, 2 3 times a day. General instructions Rest your ankle. Do not use your injured leg to support your body weight until your doctor says that you can. Use crutches as told by your doctor. Do not use any products that contain nicotine or tobacco, such as cigarettes, e- cigarettes, and chewing tobacco. If you need help quitting, ask your doctor. Keep all follow-up visits as told by your doctor. Contact a doctor if: Your bruises or swelling are quickly getting worse. Your pain does not get better after you take medicine. Get help right away if: You cannot feel your toes or foot. Your foot or toes look blue. You have very bad pain that gets worse. Summary An ankle sprain is a stretch or tear in one of the tough tissues (ligaments) that connect the bonesin your ankle. This condition is caused by rolling or twisting the ankle. Symptoms include pain, swelling, bruising, and trouble walking. To help with pain and swelling, put ice on the injured ankle, raise your ankle above the level of your heart, and use an elastic bandage. Also, rest as told by your doctor. Keep all follow-up visits as told by your doctor. This is important. This information is not intended to replace advice given to you by your health care provider. Make sure you discuss any questions you have with your health care provider. Document Released: 12/26/2008 Document Revised: 12/04/2018 Document Reviewed: 12/04/2018 [employer] Patient Education 2020 [employer]. Follow Up Care 03/09/2022 15:50:21 With:RUPALI JIMENEZ, LEOPOLDO Vieira Address: [address] [place] [address]- When:03/12/2022 [facility] Evaluation + Plan note 03-09-2022 Note Date & CbsaNwntHzncftea80-15-1369 Evaluation + Plan noteExtracted from: Title:ED NoteAuthor:Yasmine Rebolledo PA-CDate:03/09/22 1. Right ankle sprain (S93.4 01A: Sprain of unspecified ligament of right ankle, initial encounter) Orders: ketorolac, 30 mg = 1 mL, Injection, IntraMuscular, Once, Stop date 03/09/22 16:07:00 EDT, STAT, Start date 03/09/22 16:07:00 EDT, 03/09/22 16:07:00 EDT Deshaun Wrap Air Cast Short Crutches Future Appointments Appointment Date:04/25/2022 09:00:00 AM Scheduled Provider: Location:FT.[facility] Appointment Type:US Abdominal/Pelvis (FT) Future Scheduled Tests Radiology* US Pelvis Non-OB Complete 04/25/22 * US Transvaginal Non-OB 04/25/22 [facility] Hospital Discharge instructions 02-09-2022 Note Date & AzbvMcwqEdevbhoo80-36-2624 Hospital Discharge instructions Patient Education 02/09/2022 21:25:52 Pharyngitis Pharyngitis Pharyngitis is redness, pain, and swelling (inflammation) of the throat (pharynx). It is a very common cause of sore throat. Pharyngitis can be caused by a bacteria, but it is usually caused by a virus. Most cases of pharyngitis get better on their own without treatment. What are the causes? This condition may be caused by: Infection by viruses (viral). Viral pharyngitis spreads from person to person (is contagious) through coughing, sneezing, and sharing of personal items or utensils such as cups, forks, spoons, and toothbrushes. Infection by bacteria (bacterial). Bacterial pharyngitis may be spread by touching the nose or faceafter coming in contact with the bacteria, or through more intimate contact, such as kissing. Allergies. Allergies can cause buildup of mucus in the throat (post-nasal drip), leading to inflammation and irritation. Allergies can also cause blocked nasal passages, forcing breathing through themouth, which dries and irritates the throat. What increases the risk? You are more likely to develop this condition if: You are 5 24 years old. You are exposed to crowded environments such as daycare, school, or dormitory living. You live in a cold climate. You have a weakened disease-fighting (immune) system. What are the signs or symptoms? Symptoms of this condition vary by the cause (viral, bacterial, or allergies) and can include: Sore throat. Fatigue. Low-grade fever. Headache. Joint pain and muscle aches. Skin rashes. Swollen glands in the throat (lymph nodes). Plaque-like film on the throat or tonsils. This is often a symptom of bacterial pharyngitis. Vomiting. Stuffy nose (nasal congestion). Cough. Red, itchy eyes (conjunctivitis). Loss of appetite. How is this diagnosed? This condition is often diagnosed based on your medical history and a physical exam. Your health care provider will ask you questions about your illness and your symptoms. A swab of your throat may be done to check for bacteria (rapid strep test). Other lab tests may also be done, depending on the suspected cause, but these are rare. How is this treated? This condition usually gets better in 3 4 days without medicine. Bacterial pharyngitis may be treated with antibiotic medicines. Follow these instructions at home: Take bths-nur-xtamtfx and prescription medicines only as told by your health care provider. ?If you were prescribed an antibiotic medicine, take it as told by your health care provider. Do not stop taking the antibiotic even if you start to feel better. ?Do not give children aspirin because of the association with Claude syndrome. Drink enough water and fluids to keep your urine clear or pale yellow. Get a lot of rest. Gargle with a salt-water mixture 3 4 times a day or as needed. To make a salt- water mixture, completely dissolve -1 tsp of salt in 1 cup of warm water. If your health care provider approves, you may use throat lozenges or sprays to soothe your throat. Contact a health care provider if: You have large, tender lumps in your neck. You have a rash. You cough up green, yellow-brown, or bloody spit. Get help right away if: Your neck becomes stiff. You drool or are unable to swallow liquids. You cannot drink or take medicines without vomiting. You have severe pain that does not go away, even after you take medicine. You have trouble breathing, and it is not caused by a stuffy nose. You have new pain and swelling in your joints such as the knees, ankles, wrists, or elbows. Summary Pharyngitis is redness, pain, and swelling (inflammation) of the throat (pharynx). While pharyngitis can be caused by a bacteria, the most common causes are viral. Most cases of pharyngitis get better on their own without treatment. Bacterial pharyngitis is treated with antibiotic medicines. This information is not intended to replace advice given to you by your health care provider. Make sure you discuss any questions you have with your health care provider. Document Released: 07/10/2006 Document Revised: 06/22/2018 Document Reviewed: 08/15/2017 [employer] Patient Education 2020 [employer]. 02/09/2022 21:05:26 Sore Throat, Kngs-nj-Hyms Sore Throat When you have a sore throat, your throat may feel: Tender. Burning. Irritated. Scratchy. Painful when you swallow. Painful when you talk. Many things can cause a sore throat, such as: An infection. Allergies. Dry air. Smoke or pollution. Radiation treatment. Gastroesophageal reflux disease (GERD). A tumor. A sore throat can be the first sign of another sickness. It can happen with other problems, like: Coughing. Sneezing. Fever. Swelling in the neck. Most sore throats go away without treatment. Follow these instructions at home: Take twom-khp-ocxleoc medicines only as told by your doctor. ?If your child has a sore throat, do not give your child aspirin. Drink enough fluids to keep your pee (urine) pale yellow. Rest when you feel you need to. To help with pain: ?Sip warm liquids, such as broth, herbal tea, or warm water. ?Eat or drink cold or frozen liquids, such as frozen ice pops. ?Gargle with a salt-water mixture 3 4 times a day or as needed. To make a salt- water mixture, add 1tsp (3 6 g) of salt to 1 cup (237 mL) of warm water. Mix it until you cannot see the salt anymore. ?Suck on hard candy or throat lozenges. ?Put a cool-mist humidifier in your bedroom at night. ?Sit in the bathroom with the door closed for 5 10 minutes while you run hot water in the shower. Do not use any products that contain nicotine or tobacco, such as cigarettes, e- cigarettes, and chewing tobacco. If you need help quitting, ask your doctor. Wash your hands well and often with soap and water. If soap and water are not available, use hand ornamental metal erector. Contact a doctor if: You have a fever for more than 2 3 days. You keep having symptoms for more than 2 3 days. Your throat does not get better in 7 days. You have a fever and your symptoms suddenly get worse. Your child who is 3 months to 3 years old has a temperature of 102.2 F (39 C) or higher. Get help right away if: You have trouble breathing. You cannot swallow fluids, soft foods, or your saliva. You have swelling in your throat or neck that gets worse. You keep feeling sick to your stomach (nauseous). You keep throwing up (vomiting). Summary A sore throat is pain, burning, irritation, or scratchiness in the throat. Many things can cause a sore throat. Take sjkm-wcl-jbktuny medicines only as told by your doctor. Do not give your child aspirin. Drink plenty of fluids, and rest as needed. Contact a doctor if your symptoms get worse or your sore throat does not get better within 7 days. This information is not intended to replace advice given to you by your health care provider. Make sure you discuss any questions you have with your health care provider. Document Released: 04/18/2009 Document Revised: 12/10/2018 Document Reviewed: 12/10/2018 [employer] Patient Education 2020 [employer]. Follow Up Care 02/09/2022 20:38:13 With:RUPALI JIMENEZ, LEOPOLDO Vieira Address: [address] [place] [address]- When:02/12/2022 [facility] Evaluation + Plan note 02-09-2022 Note Date & MhfsJyvfXzqsrras43-58-6938 Evaluation + Plan noteExtracted from: Title:ED NoteAuthor:Yasmine Rebolledo PA-CDate:02/09/22 1. Viral pharyngitis (J02.9: Acute pharyngitis, unspecified) Future Appointments Appointment Date:04/25/2022 09:00:00 AM Scheduled Provider: Location:.[facility] Appointment Type:US Abdominal/Pelvis (FT) Diagnostic Tests Pending * Group A Strep by PCR 02/09/22 Future Scheduled Tests Radiology* US Pelvis Non-OB Complete 04/25/22 * US Transvaginal Non-OB 04/25/22 [facility] Evaluation + Plan note Note Date & TypeNoteFacilityEvaluation + Plan note No data available for this section [facility] Hospital Discharge instructions Note Date & TypeNoteFacilityHospital Discharge instructions No data available for this section [facility] Instructions Note Date & TypeNoteFacilityInstructionsNot on filedocumented in this encounter [facility] CenterMedAware Systems Get Me Listed System Progress note Note Date & TypeNoteFacilityProgress note No data available for this section [facility] Discharge Instructions * Attachments The following attachments cannot be sent through Care Everywhere. * Bacterial Vaginosis (Hungarian) * Fever: General Info (Hungarian) documented in this encounter Assessments Diagnosis Bacterial vaginosis- Primary Unspecified vaginitis and vulvovaginitis Fever, unspecified fever cause Advance Directives TypeDate RecordedPatient RepresentativeExplanationAdvance Directives and Living Will02/04/2019 7:48 PMDate ActivatedDate RmglroielkrIxsnakzm48/23/2016 11:56 AM 07/19/2016 1:16 PM Summary Purpose Family History No Family History Records FoundNo Family History Records FoundNo Family History Records Found No data available for this section No Family History Records Found Hospital Course Note EMERGENCY DEPARTMENT DISCHAR GE SUMMARY PATIENT NAME:SHERRIE TRUONG MRN: ([id number] AGE: 24 Years SEX: Female PHONE:[phone] DOS: 03/06/2019 10:50:00 : 1995 ATTENDING PHYSICIAN:Macey Gonzales PCP: Physician, Shonda PCP CHIEF COMPLAINT: Vomiting in am Allergies No Known Medication Allergies Problems Active Colitis DISCHARGE DIAGNOSIS: DISCHARGE INSTRUCTIONS: Free Text Instruction (CUSTOM) ED PHYSICIAN DOCUMENTATION: DISPOSITION: Time of Departure From ER 03/06/2019 13:08 Discharge/Transfer From ER Home 01 MEDICATION LISTS: CURRENT MEDICATION LIST No Medications Documented MEDICATIONS GIVEN DURING MEDICAL VISIT None LAB RESULTS: LABORATORY TESTS: Abnormal Lab Result(s): Date Order Results 03/06/2019 11:36 Blood Urine A 10/UL 03/06/2019 11:36 Ketones Urine A 5MG/DL 03/06/2019 11:36 Mucous Urine A RARE RADIOLOGY: FOLLOW UP: FOLLOW-UP APPOINTMENTS: Provider: Specialty: Address: Date: Provider: Specialt (more content not included)... Additional Source Comments Reason for Visit (unrecogniz ed section and content) ReasonCommentsvaginal odor Leonela Garcia RN - 02/04/2019 8:25 PM EDT ED Notes (unrecognized secti on and content) Pt given discharge paperwork, verbalizes understanding of instructions. * Lauryn Ponce MD - 02/04/2019 7:43 PM EDT ED PROVIDER NOTE [facility] EMERGENCY DEPARTMENT NAME: Sherrie Truong AGE: 24 y.o. : 1995 VISIT DATE: 02/04/2019 CSN: [id number] PCP: Physician No Chief Complaint Patient presents with vaginal odor HPI this is a 24-year-old female with no significant past medical history who presents with vaginalodor. The patient reports that she knows the odor of states her menstrual cycle is also shorter than normal. It started on or Monday and ended abruptly yesterday. She states her menstrual cycle usually lasts about a week. She denies any fever. She denies any nausea, vomiting. She denies any abdominal pain. She denies any dysuria. She has any chest pain, cough, shortness of breath. She denies any headache, sore throat or any upper respiratory symptoms. She states she did not even know she had fever until her temperature was checked today she does not feel like she has a fever. She states that she has felt completely normal and actually try to follow-up with her [employer] for the vaginal odor but unfortunately cannot get an appointment until later in the month and is bothering her andher boyfriend and so she want to get it checked out sooner. She states she is only sure what the odor smells like but it is a bit fishy. She denies any vaginal discharge. She does not use any tamponswith her menstrual cycle denies putting any foreign bodies in the vagina. She does admit to some loose stools last 48 hours that has since resolved today. No other issues or complaints at this time. She denies any wounds or skin rashes. She is having unprotected intercourse but denies any concern for an STD at this time as she states her and her partner monogamous. She is concerned of possible , however. No past medical history on file. No past surgical history on file. No family history on file. Social History Socioeconomic History Marital status: Single Spouse name: Not on file Number of children: Not on file Years of education: Not on file Highest education level: Not on file Occupational History Not on file Social Needs Financial resource strain: Not on file Food insecurity: Worry: Not on file Inability: Not on file Transportation needs: Medical: Not on file Non-medical: Not on file Tobacco Use Smoking status: Current Every Day Smoker Types: Cigars Smokeless tobacco: Never Used Substance and Sexual Activity Alcohol use: Never Frequency: Never Drug use: Never Sexual activity: Not on file Lifestyle Physical activity: Days per week: Not on file Minutes per session: Not on file Stress: Not on file Relationships Social connections: Talks on phone: Not on file Gets together: Not on file Attends moravian service: Not on file Active member of club or organization: Not on file Attends meetings of clubs or organizations: Not on file Relationship status: Not on file Other Topics Concern Not on file Social History Narrative Not on file No current outpatient medications on file prior to encounter. No Known Allergies Review of Systems Constitutional: Negative for chills and fever. Respiratory: Negative for cough and shortness of breath. Cardiovascular: Negative for chest pain. Gastrointestinal: Negative for abdominal pain, blood in stool, diarrhea and nausea. Genitourinary: Negative for decreased urine volume, difficulty urinating, dyspareunia, dysuria, flank pain, frequency, hematuria, pelvic pain, urgency, vaginal bleeding and vaginal discharge. Vaginal odor. Skin: Negative for rash and wound. Neurological: Negative for dizziness, light-headedness and headaches. All other systems reviewed and are negative. Patient Vitals for the past 24 hrs: BP Temp Temp src Pulse Resp SpO2 Height Weight 02/04/192014 98.5 F (36.9 C) 02/04/19 1912 109/65 (!) 101.1 F (38.4 C) Oral 90 15 99 % 5' 70.3 kg (155 lb) Physical Exam Constitutional: She is oriented to person, place, and time. She appears well- developed and well-nourished. HENT: Head: Normocephalic and atraumatic. Right Ear: External ear normal. Left Ear: External ear normal. Mouth/Throat: Oropharynx is clear and moist. Eyes: Pupils are equal, round, and reactive to light. Neck: Neck supple. Full range of motion of neck without meningismus. Cardiovascular: Normal rate, regular rhythm and intact distal pulses. No murmur heard. Pulmonary/Chest: Effort normal and breath sounds normal. She has no wheezes. She exhibits no tenderness. Abdominal: Soft. Bowel sounds are normal. There is no tenderness. Genitourinary: Genitourinary Comments: No CMT or adnexal tenderness. No significant vaginal discharge. Cervix is normal. No vaginal foreign bodies. Musculoskeletal: Normal range of motion. She exhibits no edema. Neurological: She is alert and oriented to person, place, and time. No cranial nerve deficit. Skin: No rash noted. Psychiatric: She has a normal mood and affect. Laboratory & Radiographic Imaging (if done): Results for orders placed or performed during the hospital encounter of 02/04/19 POC , Urine Result Value Ref Range POC Preg Test, Ur Negative Negative POC Urinalysis Dipstick, Auto Result Value Ref Range Spec Grav, UA 1.025 1.005 - 1.025 pH, UA 5.5 5.0 - 7.0 Protein, UA Negative Negative mg/dL Glucose, UA Negative Negative mg/dL Ketones, UA Trace (A) Negative mg/dL Bilirubin, UA Negative Negative Urobilinogen, UA 0.2 <2.0 mg/dL Blood, UA Negative Negative Nitrite, UA Negative Negative Leukocyte Esterase, UA Negative Negative No orders to display Procedures MDM This is a well-appearing nontoxic 24-year-old female who presents with vaginal odor and was found to have a fever here. I have no objective findings on my exam for source of this fever at this time. She is extremely well-appearing here. She states she had no idea she had a fever, more so just the fact that she want to have intercourse with her partner but cannot because the odor is bothersome to her and her partner. At this point I do not have a wet prep here but given the mild fishy odor on exam we will go ahead and treat for possible BV. No evidence of yeast infection at this time she does complain of any itching or pain in the vaginal area and there is no significant discharge as explained earlier. No skin lesions or rashes. We will check her urine to make sure she is not or has UTI. Disposition pending work-up. Also trial dose of Tylenol can help with the temperature. . ED update: After dose of Tylenol the patient's temperature is 98.5. Her urine is clean and she isnot . Unsure if this elevated temperature was misread on the thermometer or secondary to a viral syndrome that is resolving as she did admit to some looser stools last couple of days but she is feeling fine. She is requesting discharge at this time which I think is reasonable. She is counseled on strict return precautions and close follow-up at this point we will go ahead and trial Flagylas again was on the wet prep here but with that fishy odor I am concerned for bacterial vaginosis. She has an appoint with her [employer] upcoming as well and will keep that appointment. Return precautions given especially just start to feel ill from the elevated temperature but this point stable for discharge with outpatient follow-up. Again, she has no abdominal tenderness or adnexal tenderness my exam and I doubt TOA or other pelvic cause for the fever at this time especially with a well-appearing and nontoxic she is. . Clinical Impression: SNOMED CT(R) 1. Bacterial vaginosis BACTERIAL VAGINOSIS 2. Fever, unspecified fever cause FEVER ED Disposition ED Disposition Condition Comment Discharge Stable Sherrie Truong discharged to home/self care in stable condition. Follow-up Information 1. [facility] Department. Specialty: Emergency Medicine Why: If symptoms worsen [address] [facility] [address] Contact information for after-discharge care Follow-up information has not been specified. New Prescriptions metroNIDAZOLE (FLAGYL) 500 MG tablet Take 1 (one) tablet (500 mg total) by mouth 2 (two) times a day with meals for 7 days . Lauryn Ponce MD 02/04/192017 Lauryn Ponce MD 02/04/192018 * Leonela Garcia RN - 02/04/2019 7:23 PM EDT Pt presents with c/o vaginal odor. Pt denies any vaginal discharge or itching. documented in this encounter INFORMATION SOURCE (unrecogn ized section and content) DATE CREATED AUTHOR 02/13/2020 [facility] DATE CREATED AUTHOR AUTHOR'S ORGANIZ ATION 08/16/2020 [facility] DATE CREATED AUTHOR AUTHOR'S ORGANIZ ATION 08/12/2023 [facility] DATE CREATED AUTHOR AUTHOR'S ORGANIZ ATION 03/20/2024 [facility] Care Team (unrecognized sect ion and content) Team MemberRelationshipSpecialtyStart DateEnd Date No Pcp, [place] [address] PCP - GeneralFamily Medicine01/17/22 Personnel Name: Harvey WYATT MD Address: Address: [address] [place] [address] Personnel Name: Harvey WYATT MD Address: [address] [place] [address] Personnel Name: Asha ZAPIEN MD Address: [address] [place] [address] FOR RECORDS PERTAINING TO PATIENTS WHO ARE OR HAVE BEEN ENROLLED IN A CHEMICAL DEPENDENCY/SUBSTANCEABUSE PROGRAM, SOME INFORMATION MAY BE OMITTED. This clinical summary was aggregated from multiple sources. Caution should be exercised in using it in the provision of clinical care. This summary normalizes information from multiple sources, and as a consequence, information in this document may materially change the coding, format and clinical context of patient data. In addition, data may be omitted in some cases. CLINICAL DECISIONS SHOULD BE BASED ON THE PRIMARY CLINICAL RECORDS. [facility] [employer] provides no warranty or guarantee of the accuracy or completeness of information in this document.
--- OUTSIDE RECORDS SUMMARY | 2025-05-14 11:25 | XMS_ITS | Clinical Summary ---
Author Organization [facility] tem Address [id number] [place] [address] Care Team Providers Care Pump Servicer Supervisor Name Role Phone No Pcp, No Pcp Primary Care Provider Unavailabl e Allergies No known active allergies Medications * This document contains information received from the source organization and may not represent a complete record from that organization. MedicationSigDispense QuantityRefillsLast FilledStart DateEnd DateStatus ibuprofen (MOTRIN) 800 mg tablet Take 1 tablet (800 mg total) by mouth every 8 (eight) hours as needed for pain. 30 tablet 02/28/2022ctive cyclobenzaprine (FLEXERIL) 10 mg tablet Take 1 tablet (10 mg total) by mouth 3 (three) times a day as needed for muscle spasms. 30 tablet 02/28/2022ctive benzocaine-menthoL (CHLORASEPTIC SORE THROAT) 6-10 mg lozenge Dissolve 1 lozenge in the mouth every 2 (two) hours as needed for sore throat. 100 tablet 4Active Active Problems ProblemNoted DateDiagnosed DateDepressive cfpuhuca54/23/2016 Immunizations ImmunizationAdministration DatesNext EmcPriw8702/28/2022 Family History Medical HistoryRelationNameCommentsDiabetesNeg Hx Social History Tobacco UseTypesPacks/DayYears UsedDateSmoking Tobacco: Some DaysCigarettes Smokeless Tobacco: NeverAlcohol UseStandard Drinks/WeekCommentsNo0 (1 standard drink = 0.6 oz pure alcohol)ChildcareAnswerDate RecordedChildcareUnknown 01/02/2019EmploymentAnswerDate WuzzezmiAxwerxrhwsIfbfphc06/12/2019Hunger ScreeningAnswerDate RecordedWithin the past 12 months we worried whether our food would run out before we got money to buy more.Never True09/28/2024Within the past 12 months the food we bought just didn't last and we didn't have money to get more.Never True09/28/2024Purpose - LifeAnswerDate RecordedPurpose and direction in quasOsosffn89/11/2021CommentsNoSex and Gender Information ValueDate RecordedSex Assigned at BirthNot on fileLegal KivWlarcm97/22/2016 10:39 PM ESTGender IdentityNot on fileSexual OrientationNot on file Last Filed Vital Signs Vital SignReadingTime TakenCommentsBlood Hlaqrnkz967/8409/28/2024 9:20 AM EST Ziuri157209/28/2024 8:16 AM SQIPibqefqszjz99.6 ??C (97.8 ??F)09/28/2024 8:16 AM ESTRespiratory Cgdw591709/28/2024 8:16 AM ESTOxygen Vchwmawewo32%09/28/2024 9:20 AM ESTInhaled Oxygen Concentration--Qzxljs10 kg (194 lb)09/28/2024 8:16 AM EST Lwgdjd038.9 cm (5' 1 )09/28/2024 8:16 AM ESTBody Mass Index36.66009/28/2024 8:16 AM EST Plan of Treatment DateTypeDepartmentCare Team (Latest Contact Info)Wkfwbiohjfm51/31/2025 11:00 AM EDTOffice Visit [facility]/Wesly Wilson MD [address] [place] [id number] Madyson Echevarria, KHAN[employer]-MIXING SUPERVISOR [address] [facility] [address] [place] [address] Health MaintenanceDue DateLast DoneCommentsDepression Eswjdtnyr44/21/2007dult BMI Follow Up Plan2013Pap Smear01/12/2016Influenza Rljgmxw6403/24/2025 Tobacco Dpbymbkhl13/20/350201/dult BMI Uafmkaoxn86 DTaP,Tdap and Td Vaccines (3 - Td or Tdap)/02/2022, 10/07/2010 Medical Devices Not on file Insurance Advance Directives * Full Code (Latest Code Status on File) Date ActivatedDate PrqgcybpajeYxeynwse89/23/2016 11:56 AM07/19/2016 1:16 PM Care Teams Team MemberRelationshipSpecialtyStart DateEnd Date No Pcp, No Pcp SHERIE Garcia [address] [facility]
--- OUTSIDE RECORDS SUMMARY | 2025-05-14 11:25 | XMS_ITS | Patient Health Record ---
Author Organization [facility] Address [address] [place] [address] Care Team Providers Care Care Transitions Manager Name Role Phone Perla Olsen Primary Care Provider Enrique Joyce [phone] Reason For Referral No Information Medications Medication SIG (Take, Route, Frequency, Duration) Notes Start Date End Date Status Zoloft 50 MG Tablet 1 tablet Orally Once a day; Duration: 30 day(s) 09/12/2019Active Social History Tobacco Use: Social History Observation Description Date Details (start date - stop date) Unknown Social History GeneralSocial InfoQuestionAnswerNotesDepression Screening (PHQ-9):Little interest or pleasure in doing thingsNearly every dayFeeling down, depressed, or hopelessNearly every dayTrouble falling or staying asleep, or sleeping too much Nearly every dayFeeling tired or having little energyNearly every dayPoor appetite or overeatingNearly every dayFeeling bad about yourself-or that you are a failure or have let yourself or your family downNearly every dayTrouble concentrating on things, such as reading the newspaper or watching television Nearly every dayMoving or speaking so slowly that other people could have noticed. Or the opposite being so fidgetyor restless that you have been moving around a lot more than usualMore than half the daysThoughts that you would be better off , or of hurting yourself in some wayMore than half the days(Consider Suicide Assessment Risk)Total Lblpp38TlsaivukftszmBdtjdo DepressionSubstance abuse/mental health issues of patient/familyPatient -Illegal Drug Use,Caffeine Use,Depressionmarijuana dailyAbility to understand healthcare/treatmentPatient:GoodTobacco Screen:Are you a:Uses tobacco in other formsSexual Hx:Had sex in the last 12 months (vaginal, oral, or anal)?Yes? with Men only? Use protection?Yes?? How often?Some of the timeHave you ever had an STD?Yes? Chlamydia?Yes? GC?YesLMP:08/18/2019Social/Support Concerns:Patient:Yes Alcohol Screening:Did you have a drink containing alcohol in the past year?No Mtffnt5VbubxftcxeuqbnPvpwnddxAebyarmlc affecting healthPoor/Risky Behaviors: Second Hand Smoke-Communication Barrier:Language Barrier?:No Problems Problem Type SNOMED Code ICD Code Onset Dates Problem Status W/U Status Risk Notes Problem Anxiety depression (040617119) Anxiety wi th depression (F41.8) Activeconfirmed Plan Of Treatment No Information Insurance Providers Payer Name Payer Address Payer Phone Subscriber Number Group Number Insured Name Patient Relationship to Insured Coverage Start Date Coverage End Date [employer] [address] [address] [place] [address] [id number] [place]IANA TRUONG Child - Insured has Financial Responsibility 0 Medical (General) History Medical History History ICD Code colitis DepressionbipolarHospitalization History Reason Date(Month/Year) Colitis 2014
--- OUTSIDE RECORDS SUMMARY | 2025-05-14 11:25 | XMS_ITS | Clinical Summary ---
Author Organization [facility] Address [address] [place] [address] Care Team Providers Care Sewer Pipe Layer Helper Name Role Phone Unallocated, Noms Provider Primary Care Provi cassi Allergies No known active allergies Medications No known medications Social History Tobacco UseTypesPacks/DayYears UsedDateSmoking Tobacco: Never Assessed CommentsUnknownSex and Gender InformationValueDate RecordedSex Assigned at Not on fileLegal MolXlnipc81/15/2023 7:28 PM EDTGender IdentityNot on fileSexual OrientationNot on file Last Filed Vital Signs Vital SignReadingTime TakenCommentsBlood Ggtqwvgk597/7801 1:34 PM EST Qwlza707408/11/2023 1:34 PM EOIFhiopnmjcvj27.7 ??C (98 ??F)08/11/2023 1:34 PM EST Respiratory Rate--Oxygen Jsqluzokkh90%08/11/2023 1:34 PM ESTInhaled Oxygen Concentration--Xvwuzr85.3 kg (166 lb)08/11/2023 1:34 PM ANASdyaqa118.5 cm (5' 2 )08/11/2023 1:34 PM ESTBody Mass Index30.36008/11/2023 1:34 PM EST Plan of Treatment Health MaintenanceDue DateLast DoneCommentsPap Smear01/12/2016Cervical Cancer Fjfjnhzcg74/21/2025HPV/Bmzpby2701/11/2025Influenza Vaccine (#1)2025 Care Teams Team MemberRelationshipSpecialtyStart DateEnd Date Unallocated, Noms Provider, [address] [place], [place] [id number] [facility]08/11/23
[2025-05-14 11:28] VITALS: PULSE 74; O2SAT 97
[2025-05-14] MEDS: ALBUTEROL SULFATE 2.5 MG/3 ML VIAL NEB IH (11:28)
== END 2025-05-14 12:06 | disposition home or self-care (01) ==
PROVIDERS: Emergency Provider Emergency Medicine
DX: J45.901 Unspecified asthma with (acute) exacerbation (principal)
CPT/HCPCS: 71045; 93005; 94640; 99284